=== PATIENT | female | born 1985 | race Caucasian/White ===

== ENCOUNTER → 2025-04-10 15:51 | Outpatient (CLI) | payer BC, SELFPAY ==
--- NOTE | 2025-04-10 15:56 | DI.RAD.S_ITS ---
PROCEDURE: ORTHO-XR FOOT 2V WB LEFT INDICATIONS: BI PLANTAR PAIN TECHNIQUE: 2 weight-bearing views acquired of the foot. COMPARISON: None. FINDINGS: Bones: There is normal bony alignment with weight bearing. No fractures or dislocations. No suspicious bony lesions. Plantar and retrocalcaneal enthesopathy. Soft tissues: No tibiotalar joint effusion. No suspicious soft tissue calcifications. IMPRESSION: No acute bony abnormality. Dictated by: Dayday Machuca M.D. on 04/11/2025 at 23:41 Approved by: Dayday Machuca M.D. on 04/11/2025 at 23:42
--- NOTE | 2025-04-10 15:56 | DI.RAD.S_ITS ---
PROCEDURE: XR FOOT 2V WB RIGHT INDICATIONS: BI PLANTAR PAIN TECHNIQUE: 3 weight-bearing views acquired of the foot. COMPARISON: None. FINDINGS: Bones: There is normal bony alignment with weight bearing. No fractures or dislocations. No suspicious bony lesions. Plantar and retrocalcaneal enthesopathy. Soft tissues: No tibiotalar joint effusion. No suspicious soft tissue calcifications. IMPRESSION: No acute bony abnormality. Dictated by: Dayday Machuca M.D. on 04/11/2025 at 23:42 Approved by: Dayday Machuca M.D. on 04/11/2025 at 23:44
== END ==
LOC: RAD 15:55
PROVIDERS: Referring Provider Family Medicine; Visit Provider Family Medicine
DX: M79.671 Pain in right foot (principal); M79.672 Pain in left foot
CPT/HCPCS: 73620

== ENCOUNTER → 2025-07-03 07:44 | Outpatient (CLI) | payer BC, SELFPAY ==
--- NOTE | 2025-07-03 07:45 | DI.MRI.S_ITS ---
PROCEDURE: MR ANKLE RT WO CON INDICATIONS: pain TECHNIQUE: Noncontrast sagittal T1 spin echo and T2 fast spin echo with fat saturation, axial proton density fast spin echo and T2 fast spin echo with fat saturation, coronal T1 spin echo and T2 fast spin echo with fat saturation through the ankle/hindfoot. COMPARISON: None. FINDINGS: Image quality: Excellent Tendons: Moderate tenosynovitis of the posterior tibialis. The flexor digitorum longus, and the flexor hallucis longus are unremarkable. No acute fracture or dislocation. The extensor tendons are unremarkable. Mild tenosynovitis of the peroneal tendons, without tear. Mild tendinosis of the peroneal longus. Mild tendinosis of the distal Achilles tendon, without tear. Ligaments: The anterior and posterior tibiofibular ligaments are intact. The anterior talofibular ligament is diminutive and mildly redundant, likely secondary to prior partial thickness tear. The posterior talofibular ligament is intact. Mild thickening of the calcaneofibular ligament, representing prior sprain. The deep portion deltoid ligament is unremarkable. Sinus tarsi: No fibrosis. small amount of fluid in the Gruberi bursa. Plantar fascia: Thickening of the central cord with focal partial-thickness tear about the calcaneal insertion. Subjacent marrow edema of the plantar calcaneus and the plantar calcaneal enthesophyte, representing enthesitis with reactive edema. Muscle: Normal in signal Bones: Marked marrow edema of the talus head and neck, without definite fracture, raising concern for marrow contusion. There is multifocal patchy marrow edema of the calcaneus, involving the anterior calcaneus, the lateral aspect of the calcaneus body, and the plantar calcaneus body, nonspecific and may be reactive versus marrow contusion. No acute fracture. Marrow edema of the 4th metatarsal base, without definite fracture line, nonspecific and may represent stress changes. Maryam deformity is noted. Multifocal mild degenerative changes in the midfoot. No significant tibiotalar effusion. IMPRESSION: 1. Partial-thickness tear of the anterior talofibular ligament. 2. Plantar fasciitis with focal partial-thickness tear of the central cord, plantar calcaneal enthesitis, and associated reactive marrow edema in the calcaneus. 3. Findings concerning for marked marrow contusion of the talus head and neck. Multifocal patchy marrow edema of the calcaneus, nonspecific and may represent marrow contusion as well. No acute fracture. 4. Findings concerning for stress changes of the 4th metatarsal base. 5. Mild degenerative changes in the midfoot. Dictated by: Zhanna Regalado M.D. on 07/03/2025 at 12:23 Approved by: Zhanna Regalado M.D. on 07/03/2025 at 12:33
--- NOTE | 2025-07-03 07:45 | DI.MRI.S_ITS ---
PROCEDURE: MR ANKLE LT WO CON INDICATIONS: pain TECHNIQUE: Noncontrast sagittal T1 spin echo and T2 fast spin echo with fat saturation, axial proton density fast spin echo and T2 fast spin echo with fat saturation, coronal T1 spin echo and T2 fast spin echo with fat saturation through the ankle/hindfoot. COMPARISON: [facility], CR, ORTHO-XR FOOT 2V WB LEFT, 04/10/2025, 15:55. [facility], MR, MR ANKLE RT WO CON, 07/03/2025, 8:05. FINDINGS: Image quality: Excellent Tendons: Mild tenosynovitis of the posterior tibialis. The flexor digitorum longus, and the flexor hallucis longus are unremarkable. The extensor tendons are unremarkable. Full-thickness longitudinal split tear of the peroneal brevis, at the level of the anterior calcaneus (03:35). The peroneal brevis is unremarkable. Mild tendinosis of the distal Achilles tendon, with focal high-grade interstitial tear at the segment (04:28. Ligament: The anterior and the posterior tibiofibular ligaments are intact. The anterior and posterior talofibular ligaments are intact. The calcaneofibular ligament is unremarkable. The deep portion of the deltoid ligament is unremarkable. sinus tarsi: No fibrosis Plantar fascia: Thickening of the central cord, raising concern for plantar fasciitis. Muscles: Mild muscle edema deep to the central cord of the plantar fascia at the level of the calcaneus, reactive. No fatty atrophy. Bones: Diffuse marrow edema of the 4th metatarsal with periosteal thickening, partially visualized. Plantar calcaneal and posterior calcaneal enthesophyte. Multifocal mild degenerative changes of the tarsal metatarsal joint. No significant tibiotalar effusion. Subcutaneous edema posterior to the distal Achilles tendon. Subcutaneous edema of the medial and lateral ankle. IMPRESSION: 1. Full-thickness longitudinal split tear of the peroneal longus. 2. Focal high-grade tear of the distal Achilles tendon. 3. Plantar fasciitis. 4. Diffuse marrow edema of the 4th metatarsal with periosteal thickening, partially visualized, but raises concern for stress changes with or without fracture. Recommend further evaluation with MRI foot. 5. Mild degenerative changes of the tarsometatarsal joints. Dictated by: Zhanna Regalado M.D. on 07/03/2025 at 12:12 Approved by: Zhanna Regalado M.D. on 07/03/2025 at 12:23
== END ==
LOC: MRI 07:44
PROVIDERS: Referring Provider Podiatrist; Visit Provider Podiatrist
DX: S86.012A Strain of left Achilles tendon, initial encounter (principal); S96.812A Strain of other specified muscles and tendons at ankle and foot level, left foot, initial encounter; S93.491A Sprain of other ligament of right ankle, initial encounter; M72.2 Plantar fascial fibromatosis; M25.371 Other instability, right ankle; M25.571 Pain in right ankle and joints of right foot; M25.572 Pain in left ankle and joints of left foot; M25.775 Osteophyte, left foot; M65.972 Unspecified synovitis and tenosynovitis, left ankle and foot; M65.971 Unspecified synovitis and tenosynovitis, right ankle and foot
CPT/HCPCS: 73721